=== PATIENT | male | born 1945 | race Caucasian/White ===

== ENCOUNTER 2022-09-18 12:29 | Emergency (ER) | payer MEDICARE, SELFPAY ==
[2022-09-18] VITALS (7 sets, daily range): BP systolic 149–190; BP diastolic 67–78; PULSE 54–75; RESP 14; TEMP 36.7; O2SAT 93–98; BMI 23.7
[2022-09-18] MEDS: FLUORESCEIN 1 MG STRIP EYE-LEFT (15:14)
[2022-09-18] MEDS: PROPARACAINE 0.5% OPHTH SOL 1 DROPS EYE-LEFT (15:15)
--- NOTE | 2022-09-18 15:45 | PC.NURSE ---
first time seeing pt was a time of D/C, ELLIS Quiros performed physical exam on pt
--- NOTE | 2022-09-19 20:20 | ED.EYEPROB ---
HPI - Eye Problem <Chula Lopez PA-C - Last Filed: 09/19/22 20:28> General Chief complaint: Eye Problems Stated complaint: clinic sent/poss detaching retina lt eye Time Seen by Provider: 09/18/22 14:38 Source: patient and family Mode of arrival: Ambulatory History of Present Illness HPI Narrative: 77-year-old male with past medical history hypertension, asthma presents to the ED with 2 days of left eye irritation, blurry vision in the lower field of vision. Patient states that he was working outside, felt like he got some pollen or other dust into his eye following which his symptoms started. Patient felt a foreign body sensation and also states that his vision in the lower central region of the left eye feels somewhat blurry. Patient denies double vision. Patient denies contact lens use. Patient was seen at the [facility] and sent to the ED for concern about a retinal detachment. Related Data Previous Rx's Medication Instructions Recorded lisinopril 10 1 tab PO QDAY #90 tabs 02/08/16 mg-hydrochlorothiazide 12.5 mg tablet albuterol sulfate 90 mcg/actuation 2 puff INH Q4HP PRN #1 inh 12/14/16 aerosol inhaler (Proventil HFA) Allergies Allergy/AdvReac Type Severity Reaction Status Date / Time No Known Drug Allergies Allergy Verified 09/18/22 12:46 Review of Systems <Chula Lopez PA-C - Last Filed: 09/19/22 20:28> Review of Systems ROS Unobtainable: All systems reviewed & are unremarkable except as noted in HPI and below Constitutional Constitutional: Denies chills, Denies fatigue, Denies fever(s), Denies frequent falls, Denies lethargy and Denies weakness Eyes Eyes: Reports blurry vision, Denies change in vision, Denies diplopia, Denies eye discharge, Denies floaters, Reports irritation, Denies loss of vision, Denies seeing flashes and Denies spots in vision ENT Ears, Nose, Mouth, and Throat: Denies change in voice, Denies dizziness, Denies neck pain, Denies sore throat and Denies throat swelling Cardiovascular Cardiovascular: Denies chest pain, Denies irregular heart rhythm, Denies lightheadedness, Denies palpitations, Denies dyspnea, Denies dyspnea on exertion and Denies orthopnea Respiratory Respiratory: Denies cough, Denies dyspnea, Denies dyspnea on exertion and Denies wheezing Gastrointestinal Gastrointestinal: Denies abdominal pain, Denies change in bowel habits, Denies diarrhea, Denies nausea and Denies vomiting Genitourinary Genitourinary: Denies hematuria, Denies flank pain, Denies urinary incontinence and Denies urinary urgency Musculoskeletal Musculoskeletal: Denies back pain, Denies muscle weakness, Denies neck pain, Denies numbness and Denies tingling Integumentary/Breasts Skin/Breast: Denies pruritus, Denies erythema, Denies rash and Denies wounds Neurologic Neurologic: Denies behavioral changes, Denies confusion, Denies dizziness, Denies frequent falls, Denies loss of vision, Denies numbness, Denies tingling and Denies weakness Psychiatric Psychiatric: Denies anxiety, Denies behavioral changes, Denies confusion, Denies depression, Denies homicidal ideation and Denies suicidal ideation Endocrine Endocrine: Denies fatigue, Denies flushing and Denies palpitations Hematologic/Lymphatic Hematologic/Lymphatic: Denies easy bruising Allergic/Immunologic Allergic/Immunologic: Denies urticaria, Denies throat swelling and Denies wheezing Patient History <Chula Lopez PA-C - Last Filed: 09/19/22 20:28> Social History Smoking Status: Never smoker Smoking Status: Never smoker alcohol intake frequency: 0-2 drinks per day Substance Use Type: does not use Exam <Chula Lopez PA-C - Last Filed: 09/19/22 20:28> Narrative Exam Narrative: Const General:?cooperative, healthy appearing and comfortable [facility] Head:?normal to inspection Ears:?hearing grossly normal bilaterally Nose:?external nose normal Face and sinus:?normal facial exam and sinuses nontender Mouth:?oral mucosae normal Throat:?posterior oropharynx normal Eyes General:?appearance normal, both eyes and all related structures; no conjunctival injection; no tearing; PERRLA Neck Neck:?normal visual inspection and no lymphadenopathy noted Resp Effort & Inspection:?normal respiratory effort Auscultation:?clear to auscultation bilaterally Cardio Rate:?regular rate Rhythm:?regular rhythm Neuro General:?patient alert, patient awake and patient oriented x3 Initial Vital Signs Initial Vital Signs: Vital Signs Temperature 98.1 F 09/18/22 12:41 Pulse Rate 59 L 09/18/22 12:41 Respiratory Rate 14 09/18/22 12:41 Blood Pressure 166/75 H 09/18/22 12:41 Pulse Oximetry 98 09/18/22 12:41 Oxygen Delivery Method Room Air 09/18/22 12:41 <Violetta Malave DO - Last Filed: 09/22/22 06:14> Initial Vital Signs Initial Vital Signs: Vital Signs Temperature 98.1 F 09/18/22 12:41 Pulse Rate 59 L 09/18/22 12:41 Respiratory Rate 14 09/18/22 12:41 Blood Pressure 166/75 H 09/18/22 12:41 Pulse Oximetry 98 09/18/22 12:41 Oxygen Delivery Method Room Air 09/18/22 12:41 Course <Chula Lopez PA-C - Last Filed: 09/19/22 20:28> Orders Ordered: Discontinued Medications Fluorescein Sodium (Fluorescein 1 Mg Strip) 1 mg EYE-LEFT NOW ONE Stop: 09/18/22 15:06 Last Admin: 09/18/22 15:14 Dose: 1 mg Documented By: CAROL Proparacaine HCl (Proparacaine 0.5% Ophth Devora) 1 drops EYE-LEFT NOW ONE Stop: 09/18/22 15:06 Last Admin: 09/18/22 15:15 Dose: 1 drop Documented By: CAROL <Violetta Malave DO - Last Filed: 09/22/22 06:14> Orders Ordered: Discontinued Medications Fluorescein Sodium (Fluorescein 1 Mg Strip) 1 mg EYE-LEFT NOW ONE Stop: 09/18/22 15:06 Last Admin: 09/18/22 15:14 Dose: 1 mg Documented By: CAROL Proparacaine HCl (Proparacaine 0.5% Ophth Devora) 1 drops EYE-LEFT NOW ONE Stop: 09/18/22 15:06 Last Admin: 09/18/22 15:15 Dose: 1 drop Documented By: CAROL MDM - Eye Problem <Chula Lopez PA-C - Last Filed: 09/19/22 20:28> MDM Narrative Medical decision making narrative: 77-year-old male with past medical history hypertension, asthma presents to the ED with 2 days of left eye irritation, blurry vision in the lower field of vision. Concern for retinal detachment versus corneal abrasion versus other. Fluorescein exam negative for corneal or conjunctival abrasions. Bedside ultrasound negative for retinal detachment or vitreous hemorrhage. Patient's symptoms are also not consistent with a retinal detachment. Patient's vision is 20/30 in the left eye without glasses or contacts. Patient states that he stopped having the foreign body sensation after the 1st 24 hours, he thinks that the foreign body washed itself out and that he just had a mild scratch from it that has healed already. Patient agrees to follow-up with ophthalmology as soon as possible. ED return precautions were discussed with patient. Patient verbalized understanding. Medical records reviewed: Yes Discharge Plan Departure Patient Disposition: Home Clinical Impression: Eye discomfort Instructions: DI for Foreign Body in the Eye Activity Restrictions/Additional Instructions: You were evaluated in the ED today for left eye discomfort and blurry vision. Your ultrasound did not show a retinal detachment. The fluorescein exam did not show corneal abrasions. It is likely that you had a foreign body such as pollen in your eye that caused irritation and possibly a corneal scratch which has healed. Please follow-up with [facility] physicians and Surgeons by calling [phone] for an appointment. Return to the ED if your vision worsens, you see floaters. Prescriptions: No Action lisinopril-hydrochlorothiazide 10 MG/12.5 MG tablet 1 tab PO QDAY Qty: 90 3RF albuterol sulfate [Proventil HFA] 90 MCG/PUFF HFA aerosol inhaler 2 puff INH Q4HP PRNQty: 1 1RF Referrals: Alvina Ochoa ARNP [Primary Care Provider] - Stand Alone Forms: Patient Portal/API <Violetta Malave DO - Last Filed: 09/22/22 06:14> Cosign ED Attending Maryature Attestation: I was immediately available in the department for consultation. Documentation has been reviewed.
== END 2022-09-18 15:47 | disposition home or self-care (01) ==
PROVIDERS: Emergency Provider Student in an Organized Health Care Education/Training Program; PCP Nurse Practitioner Family
DX: H57.12 Ocular pain, left eye (principal); H53.8 Other visual disturbances
CPT/HCPCS: 99282